=== PATIENT | female | born 1985 | race American Indian/Alaskan Native ===

== ENCOUNTER 2022-10-18 17:05 | Outpatient (CLI) | payer SELFPAY ==
--- NOTE | 2022-10-19 17:38 | XRAY Report ---
PROCEDURE: Chest 2 View X-Ray INDICATIONS: COUGH TECHNIQUE: 2 views of the chest were acquired. COMPARISON: None FINDINGS: Surgical changes and devices: None. Lungs and pleura: No pleural effusions or pneumothorax. Lungs are clear. Mediastinum: Mediastinal contours are normal. Heart size is normal. Bones and chest wall: No suspicious bony abnormalities. Soft tissues appear unremarkable. IMPRESSION: No acute cardiopulmonary pathology. Reviewed by: Michael Tovar MD on 10/19/2022 5:36 PM [facility] Approved by: Michale Tovar MD on 10/19/2022 5:36 PM [facility] Station ID: [id number]
== END 2022-10-18 23:59 | disposition home or self-care (01) ==
LOC: DI.N 17:05
PROVIDERS: ATTEND Physician Assistant Medical
DX: R05.1 Acute cough (principal)